=== PATIENT | male | born 2000 | race African-American/Black ===

== ENCOUNTER 2021-03-04 11:52 | Emergency (ER) | payer OTHER, MEDICAID, SELFPAY ==
[2021-03-04 12:03] VITALS: BP 133/70; PULSE 93; RESP 20; TEMP 36.2; O2SAT 100; BMI 22.9
[2021-03-04 12:04] VITALS: PULSE 93; O2SAT 100
[2021-03-04 12:35] VITALS: PULSE 103; O2SAT 100
--- NOTE | 2021-03-04 12:39 | DI.RAD.S_ITS ---
PROCEDURE: XR CHEST 2V INDICATIONS: left sided pain TECHNIQUE: 2 views of the chest were acquired. COMPARISON: None. FINDINGS: Surgical changes and devices: None. Lungs and pleura: Lungs are clear. No pleural effusions or pneumothorax. Mediastinum: Mediastinal contours are normal. Heart size is normal. Bones and chest wall: No suspicious bony abnormalities. Soft tissues appear unremarkable. IMPRESSION: Normal chest x-ray Approved by: Maxx Lane M.D. on 03/04/2021 at 13:42
[2021-03-04] MEDS: LORazepam 0.5 MG TABLET 1 MG PO (12:43)
[2021-03-04 13:45] VITALS: BP 126/73; PULSE 99; RESP 18; O2SAT 99
--- NOTE | 2021-03-04 13:55 | ED.CHESTPAIN ---
HPI - Chest Pain General Chief Complaint: Chest Pain Stated Complaint: Chest Pain and Really Bad Anxiety Time Seen by Provider: 03/04/21 12:09 Source: patient and family Mode of arrival: Ambulatory Limitations: no limitations History of Present Illness HPI narrative: Patient is a 20-year-old male who presents left-sided pain ongoing for the last 2 days. It is 1 particular spot her 20 touch is it. He has been doing pushups but has gained intensity in them over time. It does hurt when he breathes. No fever or chills. He also has a history of anxiety he feels like his anxiety is increasing he is having some brain fog he feels like he has numbness and tingling in his extremities. Related Data Allergies Allergy/AdvReac Type Severity Reaction Status Date / Time No Known Drug Allergies Allergy Verified 03/04/21 12:03 Review of Systems Review of Systems Narrative: GENERAL: Denies chills, fatigue, malaise, fever, sweats, travel HEENT: Denies sinus pain, ear pain, sore throat, difficulty swallowing, neck pain RESPIRATORY: Denies dyspnea, cough, wheezing, hemoptysis, sputum. CARDIOVASCULAR: See HPI GASTROINTESTINAL: Denies nausea, vomiting, abdominal pain, diarrhea, constipation, melena. : Denies dysuria, frequency, incontinence, hematuria, urinary retention, flank pain. MUSCULOSKELETAL: Denies weakness, joint pain, or bony pain SKIN: No rash, no erythema, no pruritus NEUROLOGIC: Denies weakness, dizziness, headache, numbness, change in speech, confusion PSYCHIATRIC: No concerning psychosocial issues. 12 point review of systems is negative except for those stated above and HPI Patient History Medical History (Updated 03/04/21 @ 14:09 by Arminda Lemons DO) Anxiety Social History Smoking Status: Never smoker Smoking Status: Never smoker Substance Use Type: marijuana Exam Initial Vital Signs Initial Vital Signs: Vital Signs Temperature 97.1 F L 03/04/21 12:03 Pulse Rate 93 H 03/04/21 12:03 Respiratory Rate 20 03/04/21 12:03 Blood Pressure 133/70 03/04/21 12:03 Pulse Oximetry 100 03/04/21 12:03 GENERAL: Alert well-appearing 20-year-old maleand in no acute distress. HEENT: Head atraumatic,EOMI, pupils reactive, face symmetric, moist mucous membranes CARDIOVASCULAR: Regular rate and rhythm without murmurs, rubs or gallops. Pinpoint anterior rib pain between ribs 4 and 5 reproducible with palpation no obvious deformity no paradoxical movement RESPIRATORY: Breath sounds equal bilaterally, no wheezes rales or rhonchi. ABDOMEN: Soft, nontender. Normoactive bowel sounds all 4 quadrants. No guarding or rebound. EXTREMITIES: Normal range of motion, no clubbing or edema. Neurovascularly intact NEUROLOGICAL: Alert and oriented x4.Normal gait and speech. SKIN: Warm, dry, no laceration, no petechiae, no rashes or lesions. Course Orders Ordered: ED Orders 03/04/21 12:04 EKG-12 Lead Routine 03/04/21 12:39 XR chest 2V Stat Discontinued Medications Lorazepam (Lorazepam 0.5 Mg Tablet) 1 mg PO NOW ONE Stop: 03/04/21 12:40 Last Admin: 03/04/21 12:43 Dose: 1 mg Documented by: JESSICA Vital Signs Vital signs: Vital Signs - 8 hr 03/04/21 12:03 03/04/21 12:04 03/04/21 12:35 Temperature 97.1 F L Pulse Rate 93 H 93 H 103 H Respiratory Rate 20 Blood Pressure 133/70 Pulse Oximetry 100 100 100 03/04/21 13:45 Temperature Pulse Rate 99 H Respiratory Rate 18 Blood Pressure 126/73 Pulse Oximetry 99 MDM - Chest Pain Imaging Data Chest x-ray: My Impression: No acute cardiopulmonary process ECG Data Interpretation: Normal sinus rhythm rate 101 DC interval 142 QRS [address] changes no T-wave inversions normal intervals MDM Narrative Medical decision making narrative: Patient has pinpoint left-sided chest pain worse with movement. He is having some anxiety as well he has been given Ativan which definitely seems to help. EKG and x-ray are overall reassuring recommend NSAIDs decreased activity level and close follow-up. Discharge Plan Departure Patient Disposition: Home Clinical Impression: Acute costochondritis Instructions: DI for Costochondritis Activity Restrictions/Additional Instructions: *You have been diagnosed with costochondritis *What to do: At this time increase activity as tolerated however if it hurts is stop. This can take a few weeks to heal. *Continue to take medications as directed Ibuprofen 100 mg daily hours if needed for pain *Follow up with your primary care provider in 2-3 days *Return to ER if you should have increasing chest pain, shortness of breath, palpitations or any new, worsening or concerning symptoms
--- NOTE | 2021-03-04 14:01 | PC.NURSE ---
pt reports feeling better resp even unlabored nad. hr 98.
[2021-03-04 14:14] VITALS: BP 128/65; PULSE 67; RESP 14; O2SAT 99
== END 2021-03-04 14:16 | disposition home or self-care (01) ==
PROVIDERS: Emergency Provider Emergency Medicine
DX: M94.0 Chondrocostal junction syndrome [Tietze] (principal)
CPT/HCPCS: 71046; 93005; 99283; 99284

== ENCOUNTER 2021-03-08 10:15 | Emergency (ER) | payer OTHER, MEDICAID, SELFPAY ==
[2021-03-08 10:43] VITALS: BP 133/82; PULSE 71; RESP 14; TEMP 36.9; O2SAT 100; BMI 21.5
[2021-03-08 11:19] LABS: Appearance Urine UA CLEAR; Bilirubin Urine UA NEGATIVE (NEGATIVE); Color Urine UA YELLOW; Glucose Urine UA TRACE g/dL (Negative); Ketones Urine UA 1+ (NEGATIVE); Leukocyte Esterase Urine UA NEGATIVE (NEGATIVE); Nitrite Urine UA NEGATIVE (Negative); Occult Blood Urine UA NEGATIVE (Negative); Protein Urine UA NEGATIVE (Negative); Specific Gravity Urine UA 1.015 (1.000-1.035); Urobilinogen Urine UA 0.2 E.U./dL (0.2); pH Urine UA 7.5 (4.5-8.0)
--- NOTE | 2021-03-08 11:21 | ED.GENADULT ---
HPI - General Adult General Chief complaint: Abdominal Pain Stated complaint: Lower RT abd pain x 3 days Time Seen by Provider: 03/08/21 11:18 Source: patient Mode of arrival: Ambulatory Limitations: no limitations History of Present Illness HPI narrative: 20-year-old young man with a history of panic attacks and anxiety disorder along with a history of significant constipation. He takes MiraLax twice a day as well as laxatives and over the last 3 days has noted that he is having significant diarrhea feels like he has to have a bowel movement but has been unable to produce any solid stool. He is complaining of right lower quadrant pain in is able to easily move about the bed to show me how much and where it is hurting in way that does not suggest any acute peritoneal signs. He is somewhat anxious but very cooperative. He does not report fevers, chills, chest pain, dyspnea, orthopnea, headaches, lower extremity edema and has had no recent skin changes. Related Data Allergies Allergy/AdvReac Type Severity Reaction Status Date / Time No Known Drug Allergies Allergy Verified 03/08/21 10:47 Review of Systems Review of Systems Narrative: Remainder of complete review of systems is otherwise unremarkable except for that included in the HPI. Patient History Medical History (Updated 03/08/21 @ 16:31 by Ignacia Topete MD) Anxiety Constipation Social History Smoking Status: Never smoker Smoking Status: Never smoker alcohol intake frequency: holidays/special occasions only Substance Use Type: marijuana Exam Narrative Exam Narrative: General: Healthy appearing, anxious but able to give a complete and coherent history. Well-nourished well-developed HEENT: Moist mucous membranes, normal sclera with reactive pupils, Respiratory: Lungs are clear to auscultation, no wheezing no rales no rhonchi. Full and symmetrical air movement Cardiac: Regular rate and rhythm no murmurs no bruits Abdomen: Soft, mild tenderness in the right lower quadrant without rebound or guarding, good bowel tones, no flank pain. No testicular pain. Skin: Warm and dry, no rashes Neurologic: Grossly neurologically intact with no obvious asymmetries or abnormalities Extremities: No trauma, well perfused Psych: Cooperative, appropriate insight and affect Initial Vital Signs Initial Vital Signs: Vital Signs Temperature 98.4 F 03/08/21 10:43 Pulse Rate 71 03/08/21 10:43 Respiratory Rate 14 03/08/21 10:43 Blood Pressure 133/82 03/08/21 10:43 Pulse Oximetry 100 03/08/21 10:43 Course Orders Ordered: ED Orders 03/08/21 11:00 Urinalysis and Microscopic Stat 03/08/21 11:20 Complete Blood Count AUTO DIFF Stat Comprehensive Metabolic Panel Stat Lipase Stat 03/08/21 11:30 XR acute abdomen series Stat 03/08/21 14:15 CT abdomen pelvis w con Stat Discontinued Medications Lorazepam (Lorazepam 2 Mg/Ml Inj) 0.5 mg IV NOW ONE Stop: 03/08/21 11:31 Last Admin: 03/08/21 11:38 Dose: 0.5 mg Documented by: ATAYLOR Vital Signs Vital signs: Vital Signs - 8 hr 03/08/21 10:43 03/08/21 11:58 03/08/21 13:22 Temperature 98.4 F Pulse Rate 71 74 85 Respiratory Rate 14 16 16 Blood Pressure 133/82 118/56 L 129/62 Pulse Oximetry 100 98 100 03/08/21 16:21 Temperature Pulse Rate 79 Respiratory Rate 18 Blood Pressure 138/68 Pulse Oximetry 100 Medical Decision Making Lab Data Result diagrams: 03/08/21 11:20 03/08/21 11:20 Labs: Lab Results 03/08/21 03/08/21 03/08/21 Range/Units 11:00 11:20 11:20 WBC 7.5 (4.5-11.0) X10^3/uL RBC 5.10 (4.5-5.9) X10^6/uL Hgb 13.8 (13.5-17.5) g/dL Hct 42.5 (41-53) % MCV 83.3 (80-100) fL MCH 27.0 (26-34) PG MCHC 32.5 (30-36) % RDW 13.1 (11.6-14.8) % Plt Count 186 (150-400) X10^3/uL Neut % (Auto) 79.3 H (50-75) % Lymph % (Auto) 15.0 L (25-40) % Leslie % (Auto) 5.3 (3-14) % Eos % (Auto) 0.2 L (2-4) % Baso % (Auto) 0.2 (0-2) % Neut # (Auto) 5900 (1582-3042) /uL Lymph # (Auto) 1100 (7466-8069) /uL Leslie # (Auto) 400 (0-900) /uL Eos # (Auto) 0 (0-450) /uL Baso # (Auto) 0 (0-100) /uL Sodium 139 (137-145) mmol/L Potassium 3.9 (3.4-5.1) mmol/L Chloride 101 (98-107) mmol/L Carbon Dioxide 29 (22-32) mmol/L BUN 16 (9-20) mg/dL Creatinine 1.01 (0.66-1.25) mg/dL Estimated GFR > 60.0 (>60) mL/min BUN/Creatinine Ratio 15.8 (6-22) Glucose 92 (70-100) mg/dL Calcium 9.7 (8.4-10.2) mg/dL Total Bilirubin 3.2 H (0.2-1.3) mg/dL AST 38 (17-59) IU/L ALT 19 (<50) IU/L Alkaline Phosphatase 53 (38-126) U/L Total Protein 8.1 (6.3-8.2) g/dL Albumin 5.0 (3.5-5.0) g/dL Globulin 3.1 (1.7-4.1) g/dL Albumin/Globulin Ratio 1.6 (1.0-2.8) Lipase 92 (23-300) U/L Urine Color Yellow Urine Appearance Clear Urine pH 7.5 (4.5-8.0) Ur Specific [place] 1.015 (1.000-1.035) Urine Protein Negative (Negative) Urine Glucose (UA) Trace H (Negative) g/dL Urine Ketones 1+ H (NEGATIVE) Urine Occult Blood Negative (Negative) Urine Nitrate Negative (Negative) Urine Bilirubin Negative (NEGATIVE) Urine Urobilinogen 0.2 (0.2) E.U./dL Ur Leukocyte Esterase Negative (NEGATIVE) Urine RBC None seen (0-5/HPF) Urine WBC 0-1/hpf (0-5/HPF) Urine Bacteria Few (2-10) H (None) Ur Culture Indicated? Cult not indicated Imaging Data acute abd: Radiologist's Impression: FINDINGS: Surgical changes and devices: None. Chest: Lungs are clear. Heart size is normal. No pleural effusions. No pneumoperitoneum. Abdomen: Bowel gas pattern is normal. No suspicious calcifications. Visualized solid organ contours appear normal. Bones: No suspicious bony lesions. IMPRESSION: No acute disease process. If patient's symptoms persist or worsen, consider CT scan of the abdomen/pelvis for additional evaluation Dictated by: Leann Saavedra MD, PhD on 03/08/2021 at 12:45 CT scan - abdomen/pelvis: Radiologist's Impression: FINDINGS: Image quality: Excellent. Lung bases: Unremarkable. Heart: No significant findings. ABDOMEN: Liver: Normal contour, enlarged. Gallbladder: No gallbladder wall thickening or pericholecystic fluid. Biliary ducts: No substantial dilatation. Pancreas: No pancreatic duct dilatation or contour deforming mass. Spleen: Normal contour, unenlarged. Adrenal Glands: No nodularity. Kidneys and Ureters: Symmetric enhancement without evidence of obstructive uropathy. Stomach and Bowel: No intestinal obstruction. The appendix is not visualized; however, no pericecal inflammatory changes are appreciated. Peritoneum: No abnormal intraperitoneal fluid. No free air. Ventral Wall: No hernia. Abdominal Nodes: No retroperitoneal or mesenteric adenopathy by size criteria. Vessels: Aorta and inferior vena cava are normal in size. PELVIS: Pelvic Organs: Unremarkable. Bladder: Smooth contour. Pelvic Nodes: No enlarged lymph nodes. Miscellaneous: No inguinal hernias are seen. Bones: No significant abnormality. IMPRESSION: No acute intra-abdominal/pelvic abnormality. Dictated by: Jose Sanabria M.D. on 03/08/2021 at 14:47 MDM Narrative Additional Information: 20-year-old young man with 3 days of diarrhea a sensation of severe constipation with x-rays that do not actually suggest that. He does have an isolated elevated bilirubin level at 3.2 and has had abdominal pain now for 3 days. Given the continued pain, absence of constipation no concern for kidney stone and isolated hyperbilirubinemia will move to a CT scan of the abdomen. CT scan is unremarkable. The patient is re-examined and pain is completely resolved. He has not had any further diarrhea since in the ER. At this point I do not have a complete explanation for the isolated bilirubin recommended that he follow-up with his primary care doctor within a week will likely simply need blood tests recheck to make sure labs are trending back to normal or to figure out next appropriate outpatient follow-up steps. Currently there is no evidence of significant infection, obstruction, impaction, appendicitis kidney obstruction or nephrolithiasis. At this time he is safe for home discharge Discharge Plan Departure Patient Disposition: Home Clinical Impression: Diarrhea Qualifiers: Diarrhea type: unspecified type Qualified Code(s): R19.7 - Diarrhea, unspecified Abdominal pain Qualifiers: Abdominal location: right lower quadrant Qualified Code(s): R10.31 - Right lower quadrant pain Instructions: DI for Abdominal Pain-Adult Activity Restrictions/Additional Instructions: Thank you for coming in today You are not constipated. I would suggest stopping the laxatives that you are taking. With your history of chronic constipation, I would recommend continuing the MiraLax. Because your bilirubin was elevated at 3.5 on your blood work today with no other abnormalities, a CT scan of your abdomen was ordered. It was very reassuring Janice normal. I do not have a full explanation for the elevated bilirubin at this time. I do want you to follow-up with your primary care doctor in 1-2 weeks. They will likely want to recheck the bilirubin level to make sure that it has returned to normal. If you have worsening symptoms or develop new problems, please feel free to return to the ER
--- NOTE | 2021-03-08 11:30 | DI.RAD.S_ITS ---
PROCEDURE: XR ACUTE ABDOMEN SERIES INDICATIONS: abdominal pain TECHNIQUE: One view chest and two views of the abdomen were acquired. COMPARISON: None. FINDINGS: Surgical changes and devices: None. Chest: Lungs are clear. Heart size is normal. No pleural effusions. No pneumoperitoneum. Abdomen: Bowel gas pattern is normal. No suspicious calcifications. Visualized solid organ contours appear normal. Bones: No suspicious bony lesions. IMPRESSION: No acute disease process. If patient's symptoms persist or worsen, consider CT scan of the abdomen/pelvis for additional evaluation Dictated by: Leann Saavedra MD, PhD on 03/08/2021 at 12:45 Approved by: Leann Saavedra MD, PhD on 03/08/2021 at 12:45
[2021-03-08 11:31] LABS: Add Manual Diff / Slide Review NO; Basophils Absolute Auto 0 /uL (0-100); Basophils Percent Auto 0.2 % (0-2); Eosinophils Absolute Auto 0 /uL (0-450); Eosinophils Percent Auto 0.2 % (2-4); Hematocrit 42.5 % (41-53); Hemoglobin 13.8 g/dL (13.5-17.5); Lymphocytes Absolute Auto 1100 /uL (1100-4500); Mean Corpuscular HGB Conc 32.5 % (30-36); Mean Corpuscular Volume 83.3 fL (80-100); Monocytes Absolute Auto 400 /uL (0-900); Monocytes Percent Auto 5.3 % (3-14); Neutrophils Absolute Auto 5900 /uL (1500-7000); Neutrophils Percent Auto 79.3 % (50-75); Platelet Count 186 X10^3/uL (150-400); Red Cell Distribution Width 13.1 % (11.6-14.8); White Blood Cell Count 7.5 X10^3/uL (4.5-11.0)
[2021-03-08 11:32] LABS: Bacteria Urine Few (2-10); Culture Indicated Urine Cult Not Indicated; RBC Urine None Seen (0-5/HPF); WBC Urine 0-1/HPF (0-5/HPF)
[2021-03-08] MEDS: LORazepam 2 MG/ML INJ 0.5 MG IV (11:38)
[2021-03-08 11:49] LABS: Alanine Aminotransferase 19 IU/L (<50); Albumin Globulin Ratio 1.6 (1.0-2.8); Alkaline Phosphatase 53 U/L (38-126); Aspartate Aminotransferase 38 IU/L (17-59); BUN Creatinine Ratio 15.8 (6-22); Bilirubin Total 3.2 mg/dL (0.2-1.3); Blood Urea Nitrogen 16 mg/dL (9-20); Calcium 9.7 mg/dL (8.4-10.2); Carbon Dioxide 29 mmol/L (22-32); Chloride 101 mmol/L (98-107); Estimated Glomerular Filt Rate > 60.0 mL/min (>60); Globulin 3.1 g/dL (1.7-4.1); Glucose 92 mg/dL (70-100); HEMOLYSIS < 15 (0-50); Lipase 92 U/L (23-300); Potassium 3.9 mmol/L (3.4-5.1); Sodium 139 mmol/L (137-145); Total Protein 8.1 g/dL (6.3-8.2)
[2021-03-08 11:58] VITALS: BP 118/56; PULSE 74; RESP 16; O2SAT 98
[2021-03-08 13:22] VITALS: BP 129/62; PULSE 85; RESP 16; O2SAT 100
--- NOTE | 2021-03-08 14:15 | DI.CT.S_ITS ---
PROCEDURE: CT ABDOMEN PELVIS W CON INDICATIONS: Abdominal pain and bili 3.5 unexplained TECHNIQUE: After the administration of oral and IV contrast, axial sections were acquired from the lung bases to the pubic symphysis. Coronal and sagittal reformats were performed. For radiation dose reduction, the following was used: automated exposure control, adjustment of mA and/or kV according to patient size. COMPARISON: Reference is made to the abdominal ultrasound report dated May 02, 2010. FINDINGS: Image quality: Excellent. Lung bases: Unremarkable. Heart: No significant findings. ABDOMEN: Liver: Normal contour, enlarged. Gallbladder: No gallbladder wall thickening or pericholecystic fluid. Biliary ducts: No substantial dilatation. Pancreas: No pancreatic duct dilatation or contour deforming mass. Spleen: Normal contour, unenlarged. Adrenal Glands: No nodularity. Kidneys and Ureters: Symmetric enhancement without evidence of obstructive uropathy. Stomach and Bowel: No intestinal obstruction. The appendix is not visualized; however, no pericecal inflammatory changes are appreciated. Peritoneum: No abnormal intraperitoneal fluid. No free air. Ventral Wall: No hernia. Abdominal Nodes: No retroperitoneal or mesenteric adenopathy by size criteria. Vessels: Aorta and inferior vena cava are normal in size. PELVIS: Pelvic Organs: Unremarkable. Bladder: Smooth contour. Pelvic Nodes: No enlarged lymph nodes. Miscellaneous: No inguinal hernias are seen. Bones: No significant abnormality. IMPRESSION: No acute intra-abdominal/pelvic abnormality. Dictated by: Jose Sanabria M.D. on 03/08/2021 at 14:47 Approved by: Jose Sanabria M.D. on 03/08/2021 at 14:52
[2021-03-08 16:21] VITALS: BP 138/68; PULSE 79; RESP 18; O2SAT 100
== END 2021-03-08 16:35 | disposition home or self-care (01) ==
PROVIDERS: Emergency Provider Emergency Medicine
DX: R19.7 Diarrhea, unspecified (principal); R10.31 Right lower quadrant pain; F41.9 Anxiety disorder, unspecified
CPT/HCPCS: 36415; 74022; 74177; 80053; 81001; 83690; 85025; 96374; 99284; 99285; J2060; Q9967

== ENCOUNTER 2023-03-18 19:15 | Observation (INO) | payer OTHER, SELFPAY ==
[2023-03-18] VITALS (7 sets, daily range): BP systolic 116–138; BP diastolic 56–77; PULSE 63–105; RESP 18; TEMP 36.9; O2SAT 96–100; BMI 24.0
--- NOTE | 2023-03-18 19:30 | DI.RAD.S_ITS ---
PROCEDURE: XR ACUTE ABDOMEN SERIES INDICATIONS: crampy lower abdominal pain TECHNIQUE: One view chest and two views of the abdomen were acquired. COMPARISON: [facility], CT, CT ABDOMEN PELVIS W CON, 03/08/2021, 14:41. [facility], CR, XR ACUTE ABDOMEN SERIES, 03/08/2021, 12:09. FINDINGS: Surgical changes and devices: None. Chest: Lungs are clear. Heart size is normal. No pleural effusions. No pneumoperitoneum. Abdomen: Bowel gas pattern is nonobstructive. No suspicious calcifications. Visualized solid organ contours appear normal. Bones: No suspicious bony lesions. IMPRESSION: Nonspecific nonobstructive bowel gas pattern. No pneumoperitoneum. No acute cardiopulmonary abnormality. Approved by: Luis Manuel Manjarrez M.D. on 03/18/2023 at 20:09
--- NOTE | 2023-03-18 19:30 | ED.ABDPAIN ---
HPI - Abdominal Pain General Chief Complaint: Abdominal Pain Stated Complaint: ABD PAIN Time Seen by Provider: 03/18/23 19:20 Source: patient Mode of arrival: Ambulatory History of Present Illness HPI narrative: 22-year-old male nonsmoker with noncontributory medical history presents with family in the chief complaint of gradually worsening abdominal pain over the course of the day. He states that he had a normal day yesterday other than eating large amounts of [place] food with multiple other family members. He states that starting this morning he has been having gradually worsening lower abdominal discomfort. It seems to be worse when he moves and improves with rest. He did vomit 1 time. He denies any fever or chills but states that he no longer has an appetite. He denies runny nose, sore throat or cough. He denies any history of the same. He denies any prior surgeries. No other family members feel the same. He has no trouble urinating and denies any change in moving his bowels. Related Data Allergies Allergy/AdvReac Type Severity Reaction Status Date / Time No Known Drug Allergies Allergy Verified 03/18/23 19:19 Review of Systems Review of Systems Narrative: GENERAL: See HPI HEENT: Denies sinus pain, ear pain, sore throat, difficulty swallowing, dizziness. RESPIRATORY: Denies dyspnea, cough, wheezing, hemoptysis, sputum. CARDIOVASCULAR: Denies chest pain, palpitations, orthopnea, edema, GASTROINTESTINAL: See HPI : Denies dysuria, frequency, incontinence, hematuria, urinary retention. MUSCULOSKELETAL: denies weakness, joint pain, or bony pain SKIN: Denies rash, skin lesions, or other NEUROLOGIC: Denies weakness, headache, numbness, change in speech, confusion, seizures, incoordination. PSYCHIATRIC: No concerning psychosocial issues. 12 point review of systems is negative except for those stated above Patient History Medical History Constipation Anxiety Social History household members: none Smoking Status: Never smoker Smoking Status: Never smoker alcohol intake frequency: holidays/special occasions only Substance Use Type: marijuana Exam Narrative Exam Narrative: GENERAL: [22] year old patient appears stated age. Well-developed patient, in mild distress. HEAD: Atraumatic. Normocephalic. EYES: Pupils equal round and reactive. Extraocular motions intact. No scleral icterus. No injection or drainage. ENT: Nose without bleeding, purulent drainage. Throat without erythema, tonsillar hypertrophy or exudate. Airway patent. NECK: Trachea midline. Non tender CARDIOVASCULAR: Regular rate and rhythm without murmurs, gallops, or rubs. RESPIRATORY: Clear to auscultation. Breath sounds equal bilaterally. No wheezes, rales, or rhonchi. GASTROINTESTINAL: Abdomen soft, moderately tender in the lower abdomen, nondistended. Bowel sounds present EXTREMITIES: No edema or joint tenderness. BACK: Nontender without deformity or crepitance. No flank tenderness. NEURO: AOx3. SKIN: No rash or erythema of visible areas Initial Vital Signs Initial Vital Signs: Vital Signs Temperature 98.5 F 03/18/23 19:19 Pulse Rate 86 03/18/23 19:19 Respiratory Rate 18 03/18/23 19:19 Blood Pressure 137/77 03/18/23 19:19 Pulse Oximetry 99 03/18/23 19:19 Oxygen Delivery Method Room Air 03/18/23 19:19 Course Orders Ordered: ED Orders 03/18/23 19:30 XR acute abdomen series Stat 03/18/23 20:00 Complete Blood Count AUTO DIFF Stat Comprehensive Metabolic Panel Stat Lipase Stat 03/18/23 20:41 CT abdomen pelvis w con Stat Hydromorphone HCl (Hydromorphone 0.5 Mg Inj) 0.5 mg IV Q2H PRN PRN Reason: Pain, Severe (7-10) Last Admin: 03/19/23 02:08 Dose: 0.5 mg Documented By: AM Sodium Chloride (Normal Saline 0.9%) 1,000 mls @ 125 mls/hr IV CONT ALTHEA Last Admin: 03/19/23 00:01 Dose: 125 mls/hr Documented By: AM Piperacillin Sod/Tazobactam (Sod 3.375 gm/ Sodium Chloride) 100 mls @ 25 mls/hr IV Q8H ALTHEA Last Admin: 03/19/23 00:01 Dose: 25 mls/hr Documented By: AM Ondansetron HCl (Ondansetron 4 Mg/2 Ml Inj) 4 mg IV Q4HR PRN PRN Reason: Nausea And Vomiting Discontinued Medications Hydromorphone HCl (Hydromorphone 0.5 Mg Inj) 0.5 mg IV NOW ONE Stop: 03/18/23 20:56 Last Admin: 03/18/23 20:57 Dose: 0.5 mg Documented By: HUAN Sodium Chloride (Normal Saline 0.9%) 1,000 mls @ 1,000 mls/hr IV BOLUS ONE Stop: 03/18/23 20:29 Last Infusion: 03/18/23 21:04 Dose: Infused Documented By: Admin: 03/18/23 20:08 Dose: 1,000 mls/hr Documented By: HUAN Pantoprazole Sodium (Pantoprazole 40 Mg Vial) 40 mg IV NOW ONE Stop: 03/18/23 19:31 Last Admin: 03/18/23 20:08 Dose: 40 mg Documented By: HUAN Vital Signs Vital signs: Vital Signs - 8 hr 03/18/23 19:19 03/18/23 21:02 03/18/23 21:30 Temperature 98.5 F Pulse Rate 86 105 H 68 Respiratory Rate 18 Blood Pressure 137/77 Pulse Oximetry 99 100 96 Oxygen Delivery Method Room Air 03/18/23 21:43 03/18/23 21:43 03/18/23 22:00 Temperature Pulse Rate 67 Respiratory Rate Blood Pressure 116/59 L 119/56 L Pulse Oximetry 97 Oxygen Delivery Method 03/18/23 22:00 03/18/23 22:30 03/18/23 22:30 Temperature Pulse Rate 63 65 Respiratory Rate Blood Pressure 130/67 Pulse Oximetry 97 98 Oxygen Delivery Method MDM - Abdominal Pain Lab Data 03/18/23 20:00 03/18/23 20:00 Labs: Lab Results 03/18/23 Range/Units 20:00 WBC 16.3 H (4.5-11.0) X10^3/uL RBC 4.56 (4.5-5.9) X10^6/uL Hgb 12.4 L (13.5-17.5) g/dL Hct 37.5 L (41-53) % MCV 82.2 (80-100) fL MCH 27.3 (26-34) PG MCHC 33.2 (30-36) % RDW 13.3 (11.6-14.8) % Plt Count 157 (150-400) X10^3/uL Neut % (Auto) 87.5 H (50-75) % Lymph % (Auto) 6.6 L (25-40) % [place] % (Auto) 5.8 (3-14) % Eos % (Auto) 0.0 L (2-4) % Baso % (Auto) 0.1 (0-2) % Neut # (Auto) 61511 H (2405-3199) /uL Lymph # (Auto) 1100 (7128-9518) /uL [place] # (Auto) 1000 H (0-900) /uL Eos # (Auto) 0 (0-450) /uL Baso # (Auto) 0 (0-100) /uL Sodium 136 L (137-145) mmol/L Potassium 3.4 (3.4-5.1) mmol/L Chloride 102 (98-107) mmol/L Carbon Dioxide 23 (22-32) mmol/L BUN 8 L (9-20) mg/dL Creatinine 0.72 (0.66-1.25) mg/dL Estimated GFR > 60 (>60) mL/min BUN/Creatinine Ratio 11.1 (6-22) Glucose 107 H (70-100) mg/dL Calcium 9.7 (8.4-10.2) mg/dL Total Bilirubin 1.5 H (0.2-1.3) mg/dL AST 27 (17-59) IU/L ALT 17 (<50) IU/L Alkaline Phosphatase 50 (38-126) U/L Total Protein 7.8 (6.3-8.2) g/dL Albumin 4.5 (3.5-5.0) g/dL Globulin 3.3 (1.7-4.1) g/dL Albumin/Globulin Ratio 1.4 (1.0-2.8) Lipase 62 (23-300) U/L Point of care testing: Urine Dip Bedside Urine Glucose Negative Bedside Urine Bilirubin - Negative Bedside Urine Ketone ++ 40 Urine Specific [place] 1.010 Bedside Urine Occult Blood - Negative Bedside Urine pH 8.0 Bedside Urine Protein +/- 15 Bedside Urine Urobilinogen - Negative Bedside Urine Nitrite - Negative Bedside Urine Leukocytes - Negative Esterase MDM Narrative Medical decision making narrative: [22] year old patient presents with lower abdominal pain Multiple etiologies for patient's symptoms considered including, but not limited to: [Early appendicitis versus urinary versus kidney stone versus bowel obstruction versus other] Prior Charts reviewed in our EMR Primary Historian: patient Labs reviewed and interpreted by myself: Leukocytosis with left shift Imaging reviewed: CT does not obviously identify appendix but there is free fluid in the lower pelvis Consultations: Discussed with on-call General surgery, Dr. Moseley, he sure the opinion that the patient is most appropriately admitted to the hospital on IV antibiotics kept NPO and will be evaluated in the morning Discharge Plan Departure Patient Disposition: Admitted As Inpatient Clinical Impression: Acute appendicitis Admit Date/Time: 03/18/23 22:49 Admit Provider: Dk Moseley
[2023-03-18] MEDS: SODIUM CHLORIDE 0.9% 1,000 ML 1000 ML IV (20:08)
[2023-03-18] MEDS: PANTOPRAZOLE 40 MG VIAL IV (20:08)
[2023-03-18 20:27] LABS: Add Manual Diff / Slide Review NO; Basophils Absolute Auto 0 /uL (0-100); Basophils Percent Auto 0.1 % (0-2); Eosinophils Absolute Auto 0 /uL (0-450); Hematocrit 37.5 % (41-53); Hemoglobin 12.4 g/dL (13.5-17.5); Lymphocytes Absolute Auto 1100 /uL (1100-4500); Lymphocytes Percent Auto 6.6 % (25-40); Mean Corpuscular HGB Conc 33.2 % (30-36); Mean Corpuscular Hemoglobin 27.3 PG (26-34); Mean Corpuscular Volume 82.2 fL (80-100); Monocytes Absolute Auto 1000 /uL (0-900); Monocytes Percent Auto 5.8 % (3-14); Neutrophils Absolute Auto 14300 /uL (1500-7000); Neutrophils Percent Auto 87.5 % (50-75); Platelet Count 157 X10^3/uL (150-400); Red Blood Cell Count 4.56 X10^6/uL (4.5-5.9); Red Cell Distribution Width 13.3 % (11.6-14.8); White Blood Cell Count 16.3 X10^3/uL (4.5-11.0)
[2023-03-18 20:35] LABS: Alanine Aminotransferase 17 IU/L (<50); Albumin 4.5 g/dL (3.5-5.0); Albumin Globulin Ratio 1.4 (1.0-2.8); Alkaline Phosphatase 50 U/L (38-126); Aspartate Aminotransferase 27 IU/L (17-59); BUN Creatinine Ratio 11.1 (6-22); Bilirubin Total 1.5 mg/dL (0.2-1.3); Blood Urea Nitrogen 8 mg/dL (9-20); Calcium 9.7 mg/dL (8.4-10.2); Carbon Dioxide 23 mmol/L (22-32); Chloride 102 mmol/L (98-107); Estimated Glomerular Filt Rate > 60 mL/min (>60); Globulin 3.3 g/dL (1.7-4.1); Glucose 107 mg/dL (70-100); HEMOLYSIS < 15 (0-50); Lipase 62 U/L (23-300); Potassium 3.4 mmol/L (3.4-5.1); Sodium 136 mmol/L (137-145); Total Protein 7.8 g/dL (6.3-8.2)
--- NOTE | 2023-03-18 20:41 | DI.CT.S_ITS ---
PROCEDURE: CT ABDOMEN PELVIS W CON INDICATIONS: lower abdominal pain, vomiting, no appetite, appy vs. other TECHNIQUE: After the administration of intravenous contrast, axial sections acquired from the lung bases to the pubic symphysis. Coronal and sagittal reformats were performed. For radiation dose reduction, the following was used: automated exposure control, adjustment of mA and/or kV according to patient size. COMPARISON: [facility], CT, CT ABDOMEN PELVIS W CON, 03/08/2021, 14:41. FINDINGS: Lung bases: Unremarkable. ABDOMEN: Liver: Unremarkable. Gallbladder: Unremarkable. Biliary ducts: Unremarkable. Pancreas: Unremarkable. Spleen: Unremarkable. Adrenal Glands: Unremarkable. Kidneys and Ureters: No hydronephrosis Stomach and Bowel: No bowel obstruction. Appendix not identified. Possible wall thickening of the ascending colon versus artifact from underdistention Peritoneum: Small amount of nonspecific pelvic free fluid. No free air. Abdominal Nodes: No retroperitoneal or mesenteric adenopathy by size criteria. Vessels: Aorta and inferior vena cava are normal in size. PELVIS: Pelvic Organs: Unremarkable. Bladder: Unremarkable. Pelvic Nodes: No enlarged lymph nodes. Bones: Unremarkable. IMPRESSION: A normal or abnormal appendix is not definitively identified. Evaluation is challenging due to a paucity of intra-abdominal fat. Small amount of nonspecific pelvic free fluid is present however, and acute appendicitis cannot be excluded. There is also possible wall thickening of the ascending colon versus artifact from underdistention, correlation for a nonspecific colitis may be helpful. Clinical correlation is recommended, short interval repeat imaging can be performed as indicated. Dictated by: Luis Manuel Lubin M.D. on 03/18/2023 at 22:24 Approved by: Luis Manuel Lubin M.D. on 03/18/2023 at 22:34
[2023-03-18] MEDS: HYDROMORPHONE 0.5 MG INJ IV (20:57)
[2023-03-19] VITALS (8 sets, daily range): BP systolic 126–141; BP diastolic 63–89; PULSE 67–87; RESP 16; TEMP 36.6–37.4; O2SAT 98–100
[2023-03-19] MEDS: PIPERACILLIN/TAZO 3.375 GM in SODIUM CHLORIDE 0.9% 100 ML IV ×4 (00:01→22:58)
[2023-03-19] MEDS: SODIUM CHLORIDE 0.9% 1,000 ML 125 ML IV ×3 (00:01→18:00)
[2023-03-19] MEDS: HYDROMORPHONE 0.5 MG INJ IV ×4 (02:08→21:48)
--- NOTE | 2023-03-19 08:03 | PM.CALLCOV.1 ---
Call Coverage Note Note Date of Patient Contact: 03/19/23 Time of Patient Contact: 08:03 Narrative of Care Provided: 22M admitted with possible appendicitis. WBC 16. CT A/P inflammation of R colon appendix not visualized. Minimally tender -Clears -Zosyn -Anticipate dc home today vs tomorrow on PO abx. -Recheck CBC this afternoon
--- NOTE | 2023-03-19 08:22 | PM.HP.1 ---
History of Present Illness History of Present Illness Date Patient Seen: 03/19/23 Time Patient Seen: 08:22 Chief complaint: ABD PAIN Narrative: 22-year-old healthy male presented to [facility] Emergency Department 03/18 with complaint of abdominal pain. Gradually worsening over the course of the day and primarily affecting the lower abdomen. Endorses anorexia and emesis no fever or dysuria. At admission WBC [address] abdomen pelvis personally reviewed and on my evaluation largely unremarkable. Per radiology appendix was not identified perhaps mild thickening of the ascending colon and a small amount of fluid within the pelvis, no abscess. He is admitted to the hospital for possible acute appendicitis. FOR[facility] Medical History Constipation Anxiety Social History household members: none Smoking Status: Never smoker Meds Home Medications and Allergies Allergies Allergy/AdvReac Type Severity Reaction Status Date / Time No Known Drug Allergies Allergy Verified 03/18/23 19:19 Exam Vital Signs (past 8 hours): - 03/19/23 04:23 Temperature 97.9 F Pulse Rate 67 Respiratory Rate 16 Blood Pressure 127/70 Pulse Oximetry 100 Oxygen Flow Rate 0 Oxygen Delivery Method Room Air Oxygen Flow Rate 0 Narrative Exam Narrative: GENERAL: A well nourished, well developed adult, resting comfortably, in no acute distress. HEENT: Normocephalic, atraumatic. No scleral icterus CHEST: Rising symmetrically. No audible wheezes CARDIOVASCULAR: Warm and well perfused. Regular rate ABDOMEN: Soft, mild tenderness across the lower abdomen EXTREMITIES: Normal tone and without edema. NEUROLOGIC: Moving all extremities spontaneously. No gross motor deficits. Objective Labs 03/18/23 20:00 03/18/23 20:00 Labs: Laboratory Results - last 24 hr 03/18/23 20:00 WBC 16.3 H RBC 4.56 Hgb 12.4 L Hct 37.5 L MCV 82.2 MCH 27.3 MCHC 33.2 RDW 13.3 Plt Count 157 Neut % (Auto) 87.5 H Lymph % (Auto) 6.6 L [place] % (Auto) 5.8 Eos % (Auto) 0.0 L Baso % (Auto) 0.1 Neut # (Auto) 99078 H Lymph # (Auto) 1100 [place] # (Auto) 1000 H Eos # (Auto) 0 Baso # (Auto) 0 Sodium 136 L Potassium 3.4 Chloride 102 Carbon Dioxide 23 BUN 8 L Creatinine 0.72 Estimated GFR > 60 BUN/Creatinine Ratio 11.1 Glucose 107 H Calcium 9.7 Total Bilirubin 1.5 H AST 27 ALT 17 Alkaline Phosphatase 50 Total Protein 7.8 Albumin 4.5 Globulin 3.3 Albumin/Globulin Ratio 1.4 Lipase 62 Assessment & Plan Assessment and plan (1) Abdominal pain: Qualifiers: Abdominal location: lower abdomen, unspecified Qualified Code(s): R10.30 - Lower abdominal pain, unspecified Status: Acute Assessment & Plan narrative: 22-year-old male admitted for abdominal pain with mild leukocytosis. CT abdomen pelvis largely unremarkable appendix was not definitively identified small amount of free fluid, perhaps early appendicitis. Discussed patient and his parents management options including diagnostic laparoscopy/appendectomy vs antibiotic therapy. I explained to them that antibiotic therapy is an alternative and effective treatment of uncomplicated appendicitis. -clear liquid diet -Zosyn -recheck CBC this afternoon -possible discharge home on p.o. antibiotics later today if improved
--- NOTE | 2023-03-19 08:41 | CM.DANOTE ---
Initial DCP Assessment Note Pt is a 22 yo male, resident of [place], arrives with severe abd pain, admitted for management of acute appendicitis. Patient receiving IV abx, possibly discharge home later today on po medication if symptoms improve. PCP: Unknown Payer: [place] Reviewed chart, No barriers identified at this time to patient's safe discharge home w/family to assist; close outpatient f/u recommended. CM team will plan to follow closely in case any DC needs or concerns arise. ANILA Cheung Discharge Planning/Care Management CM Discharge Assessment Start: 03/19/23 08:38 Freq: Status: Active Protocol: Document 03/19/23 08:40 ANTONIO (Rec: 03/19/23 08:41 ANTONIO [id number]) Discharge Planning Assessment Assigned [employer] ANILA Cao DPOA/Assigned Designee Name father Hicks Contact Information [phone] Advance Directives? No History Provided By Patient,Family Member,Medical Record Prior Living Arrangements House Household Members none Type of transporation used prior to Drives own vehicle admit Independent with ADL's Yes Is patient alert and oriented? Yes Barriers to Discharge No Discharge Plan Home Transportation Arrangement Family Referrals Initiated None needed
[2023-03-19] MEDS: POTASSIUM CHLORIDE 20 MEQ TAB 40 MEQ PO (09:07)
[2023-03-19] MEDS: IBUPROFEN 600 MG TABLET PO (10:02)
[2023-03-19] MEDS: DOCUSATE 100 MG CAPSULE PO (11:05)
[2023-03-19] MEDS: polyethylene glycoL 3350 17 GM POWD.PACK PO (11:05)
[2023-03-19 19:32] LABS: Add Manual Diff / Slide Review NO; Basophils Absolute Auto 0 /uL (0-100); Basophils Percent Auto 0.3 % (0-2); Eosinophils Absolute Auto 0 /uL (0-450); Hemoglobin 12.1 g/dL (13.5-17.5); Lymphocytes Absolute Auto 1300 /uL (1100-4500); Lymphocytes Percent Auto 8.4 % (25-40); Mean Corpuscular HGB Conc 33.5 % (30-36); Mean Corpuscular Hemoglobin 27.4 PG (26-34); Mean Corpuscular Volume 81.9 fL (80-100); Monocytes Absolute Auto 600 /uL (0-900); Neutrophils Absolute Auto 13500 /uL (1500-7000); Neutrophils Percent Auto 87.3 % (50-75); Platelet Count 157 X10^3/uL (150-400); Red Cell Distribution Width 13.7 % (11.6-14.8); White Blood Cell Count 15.5 X10^3/uL (4.5-11.0)
--- NOTE | 2023-03-19 19:48 | PM.CALLCOV.1 ---
Call Coverage Note Note Date of Patient Contact: 03/19/23 Narrative of Care Provided: Evening CBC reviewed 15.5 has ongoing abdominal pain. -Continue Zosyn -NPO after midnight -Discussion with pt in am regarding possible appendectomy tomorrow 03/20
[2023-03-20 04:00] VITALS: O2SAT 100
[2023-03-20 04:06] VITALS: BP 131/79; PULSE 79; RESP 18; TEMP 36.8; O2SAT 100
[2023-03-20] MEDS: SODIUM CHLORIDE 0.9% 1,000 ML 125 ML IV (04:06)
[2023-03-20] MEDS: OXYCODONE IR 5 MG TABLET PO ×2 (04:10→08:01)
[2023-03-20] MEDS: PIPERACILLIN/TAZO 3.375 GM in SODIUM CHLORIDE 0.9% 100 ML IV (06:31)
[2023-03-20 06:53] LABS: Add Manual Diff / Slide Review NO; Basophils Absolute Auto 0 /uL (0-100); Basophils Percent Auto 0.1 % (0-2); Eosinophils Absolute Auto 0 /uL (0-450); Hematocrit 33.9 % (41-53); Hemoglobin 11.4 g/dL (13.5-17.5); Lymphocytes Absolute Auto 900 /uL (1100-4500); Lymphocytes Percent Auto 7.6 % (25-40); Mean Corpuscular HGB Conc 33.5 % (30-36); Mean Corpuscular Hemoglobin 27.6 PG (26-34); Mean Corpuscular Volume 82.5 fL (80-100); Monocytes Absolute Auto 700 /uL (0-900); Monocytes Percent Auto 6.2 % (3-14); Neutrophils Absolute Auto 10300 /uL (1500-7000); Neutrophils Percent Auto 86.1 % (50-75); Platelet Count 129 X10^3/uL (150-400); Red Blood Cell Count 4.11 X10^6/uL (4.5-5.9); Red Cell Distribution Width 13.6 % (11.6-14.8)
[2023-03-20 07:07] LABS: BUN Creatinine Ratio 7.1 (6-22); Blood Urea Nitrogen 6 mg/dL (9-20); Calcium 8.9 mg/dL (8.4-10.2); Carbon Dioxide 22 mmol/L (22-32); Chloride 104 mmol/L (98-107); Estimated Glomerular Filt Rate > 60 mL/min (>60); Glucose 86 mg/dL (70-100); HEMOLYSIS < 15 (0-50); Magnesium 1.5 mg/dL (1.6-2.3); Potassium 3.6 mmol/L (3.4-5.1); Sodium 135 mmol/L (137-145)
[2023-03-20 08:00] VITALS: O2SAT 99
[2023-03-20] MEDS: DOCUSATE 100 MG CAPSULE PO (08:01)
[2023-03-20] MEDS: polyethylene glycoL 3350 17 GM POWD.PACK PO (08:02)
--- NOTE | 2023-03-20 08:46 | PM.DS.1 ---
History of Present Illness History of Present Illness Chief complaint: ABD PAIN Narrative: 22-year-old healthy male presented to [facility] Emergency Department 03/18 with complaint of abdominal pain. Gradually worsening over the course of the day and primarily affecting the lower abdomen. Endorses anorexia and emesis no fever or dysuria. At admission WBC [address] abdomen pelvis personally reviewed and on my evaluation largely unremarkable. Per radiology appendix was not identified perhaps mild thickening of the ascending colon and a small amount of fluid within the pelvis, no abscess. He is admitted to the hospital for possible acute appendicitis. Discharge Providers Provider Date of admission: 03/18/23 22:49 Discharge Date: 03/20/23 Discharge provider: Regulo Giron MD Summary Hospital Course Discharge Diagnosis: abdominal pain Hospital Course: Treated for possible appendicitis. He received Zosyn and after 24 hours therapy his abdominal pain was improved not resolved white blood cell count 12 down from 16.5 at admission. He is tolerant of a diet ambulatory afebrile. Plan is discharge home with 5 day course of Augmentin with return precautions for worsening abdominal pain fever anorexia. Exam Vital Signs (past 8 hours): - 03/20/23 04:00 03/20/23 04:06 03/20/23 08:00 Temperature 98.2 F Pulse Rate 79 Respiratory Rate 18 Blood Pressure 131/79 Pulse Oximetry 100 100 99 Oxygen Delivery Method Room Air Room Air Oxygen Flow Rate 0 0 Oxygen Delivery Method Room Air Oxygen Flow Rate 0 Narrative Exam Narrative: General adult man alert oriented no acute distress Abdomen soft mild tenderness across the lower abdomen no peritonitis no guarding Extremities warm well perfused Objective Labs 03/20/23 06:00 03/20/23 06:00 Labs: Laboratory Results - last 24 hr 03/19/23 03/20/23 19:20 06:00 WBC 15.5 H 12.0 H RBC 4.40 L 4.11 L Hgb 12.1 L 11.4 L Hct 36.0 L 33.9 L MCV 81.9 82.5 MCH 27.4 27.6 MCHC 33.5 33.5 RDW 13.7 13.6 Plt Count 157 129 L Neut % (Auto) 87.3 H 86.1 H Lymph % (Auto) 8.[address] [place] % (Auto) 4.0 6.2 Eos % (Auto) 0.0 L 0.0 L Baso % (Auto) 0.3 0.1 Neut # (Auto) 75211 H 48041 H Lymph # (Auto) [address] [place] # (Auto) 600 700 Eos # (Auto) 0 0 Baso # (Auto) 0 0 Sodium 135 L Potassium 3.6 Chloride 104 Carbon Dioxide 22 BUN 6 L Creatinine 0.85 Estimated GFR > 60 BUN/Creatinine Ratio 7.1 Glucose 86 Calcium 8.9 Magnesium 1.5 L PFSH Medical History Constipation Anxiety Social History household members: none Smoking Status: Never smoker Discharge Plan Discharge Plan Patient Disposition: Home Provider Discharge Comment: -Complete antibiotics -If worsening abdominal pain, fever nausea return to the emergency department Discharge orders & Medications Prescriptions: New amoxicillin-pot clavulanate [Augmentin] 500-125 mg tablet 1 tab PO BID Qty: 10 0RF Diet/Activity/Treatments Diet: Diet as Tolerated Skin/Wound/Dressing Care Report to your healthcare provider any signs of infection, such as:: chills, fever and increased pain Visit Report/Discharge Packet Stand Alone Forms: Patient Portal/API, Stroke Signs & Symptoms Discharge Data Attending Provider: Dk Moseley Admit Date/Time: 03/18/23 22:49
--- NOTE | 2023-03-20 09:24 | PC.NURSE ---
Discharge note: Patient awake, alert, and independently ambulatory. Discharged home per Dr. Giorn. Discussed importance of antibiotic adherence, signs of worsening symptoms, diet, and F/U with PMD. Patient verbalized understanding of discharge instructions. Home with family via private vehicle, will lease picker Rx at [facility] on [address] home.
== END 2023-03-20 09:29 | disposition home or self-care (01) ==
LOC: ED 22:46 → AC 03-19 07:33
PROVIDERS: Surgery; Admitting Provider Surgery; Emergency Provider Emergency Medicine; Referring Provider Emergency Medicine; Visit Provider Surgery
DX: R10.30 Lower abdominal pain, unspecified (principal); D72.829 Elevated white blood cell count, unspecified
CPT/HCPCS: 36415; 74022; 74177; 80048; 80053; 81003; 83690; 83735; 85025; 96361; 96365; 96366; 96375; 96376; 99221; 99238; 99284; G0378; C9113; J1170; J2543; Q9967